=== PATIENT | male | born 1985 | race Caucasian/White ===

== ENCOUNTER 2019-12-09 19:05 | Emergency (ER) | payer OTHER, BC ==
[2019-12-09] MEDS ORDERED: IBUPROFEN 800 MG TABLET PO ONE (20:17)
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
[2019-12-09 21:52] VITALS: BP 164/82
== END 2019-12-09 22:00 | disposition home or self-care (01) ==
LOC: ER 19:05
DX: M54.2 Cervicalgia (principal); M54.6 Pain in thoracic spine; M54.5 Low back pain; M54.9 Dorsalgia, unspecified; G89.29 Other chronic pain; R51 Headache; V87.7XXA Person injured in collision between other specified motor vehicles (traffic), initial encounter
CPT/HCPCS: 72050; 72070; 72110; 99283

== ENCOUNTER 2020-10-16 17:54 | Emergency (ER) | payer BC, OTHER ==
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
[2020-10-16 20:50] LABS: ABSOLUTE BASOPHILS # (AUTO) 0.1 10^3/uL (0.0-0.2); ABSOLUTE EOSINOPHILS # (AUTO) 0.3 10^3/uL (0.0-0.6); ABSOLUTE LYMPHOCYTES (AUTO) 2.1 10^3/uL (0.5-4.7); ABSOLUTE MONOCYTES (AUTO) 0.9 10^3/uL (0.1-1.4); ABSOLUTE NEUT (AUTO) 10.5 10^3/uL (1.7-8.2); BASOPHILS % (AUTO) 0.7 % (0-2); EOSINOPHILS % (AUTO) 2.4 % (0-6); HEMATOCRIT 35.7 % (37.9-51.0); HEMOGLOBIN 11.8 g/dL (13.5-17.0); LYMPHOCYTES % (AUTO) 14.9 % (13-45); MEAN CORPUSCULAR HEMOGLOBIN 22.7 pg (27.0-33.4); MEAN CORPUSCULAR VOLUME 69 fl (80-97); MONOCYTES % (AUTO) 6.1 % (3-13); PLATELET COUNT 384 10^3/uL (150-450); RED BLOOD COUNT 5.21 10^6/uL (4.35-5.55); RED CELL DISTRIBUTION WIDTH 18.5 % (11.5-14.0); SEGMENTED NEUTROPHILS % (AUTO) 75.9 % (42-78); TOTAL CELLS COUNTED % (AUTO) 100 %; WHITE BLOOD COUNT 13.9 10^3/uL (4.0-10.5)
[2020-10-16 21:06] LABS: ALBUMIN 4.5 g/dL (3.5-5.0); ALKALINE PHOSPHATASE 92 U/L (38-126); ANION GAP 13 (5-19); ASPARTATE AMINO TRANSFERASE 34 U/L (17-59); BILIRUBIN,DIRECT 0.6 mg/dL (0.0-0.4); BLOOD UREA NITROGEN 11 mg/dL (7-20); C-REACTIVE PROTEIN 78.1 mg/L (<10.0); CALCIUM 9.9 mg/dL (8.4-10.2); CARBON DIOXIDE 28 mmol/L (22-30); CHLORIDE 98 mmol/L (98-107); GLUCOSE 85 mg/dL (75-110); POTASSIUM 4.7 mmol/L (3.6-5.0); TOTAL PROTEIN 10.2 g/dL (6.3-8.2)
[2020-10-16] MEDS ORDERED: HYDROMORPHONE HCL INJ/PF 2 MG/ML AMPULE IV ONE (22:35)
[2020-10-16] MEDS: CLINDAMYCIN 600 MG/D5W RTU 600 MG/50 ML RTUPB IV SCH (23:03)
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
--- NOTE | 2020-10-17 01:16 | ER Document Report ---
ED General <ENOCH OLIVERA ANTONIO - Last Filed: 10/17/20 04:41> - General Mode of Arrival: Ambulatory Information source: Patient TRAVEL OUTSIDE OF THE [place] IN LAST 30 DAYS: No <YONY BIRCH - Last Filed: 10/17/20 15:47> - General Chief Complaint: wound with drainage Stated Complaint: POST SURGICAL PAIN Time Seen by Provider: 10/16/20 19:11 Notes: This 35-year-old man presents into the emergency department with a history of back surgery for scoliosis approximately 5 years ago in [place]. He has had a revision procedure done 3 years ago in which part of one of the Womack rods was removed. Since that time he has had some episodes of back pain and in February of this year was seen at an urgent care because of a area of drainage from the site where the chely was removed. He was told that it was a staph infection he was given antibiotics and had done well until recently when he has developed increasing pain in the area and a small open lesion which has been draining. He has been afebrile, no nausea or vomiting however, his notes that he was sweating profusely last night. She did not measure a temperature. He is complaining of pain and is presently not taking a pain medication. Denies allergies to any medications. He was seen down at [facility] neurosurgical clinic and had some outpatient evaluation started, however, there has been no follow-up. (YONY BIRCH) - Related Data Allergies/Adverse Reactions: No Known Allergies Allergy (Unverified 12/09/19 20:24) Past Medical History - Social History Smoking Status: Never Smoker Chew tobacco use (# tins/day): Yes - occasionnal cigar Frequency of alcohol use: None Drug Abuse: None Family History: Reviewed & Not Pertinent Musculoskeletal Medical History: Reports Hx Musculoskeletal Deformity, Reports Hx Musculoskeletal Trauma Past Surgical History: Reports: Hx Adenoidectomy, Hx Myringotomy, Hx Orthopedic Surgery - Womack rods surgeries x3, Hx Tonsillectomy - Immunizations Immunizations up to date: Yes <YONY BIRCH - Last Filed: 10/17/20 15:47> Review of Systems <YONY BIRCH - Last Filed: 10/17/20 15:47> - Review of Systems Notes: Constitutional: Negative for fever. HENT: Negative for sore throat. Eyes: Negative for visual changes. Cardiovascular: Negative for chest pain. Respiratory: Negative for shortness of breath. Gastrointestinal: Negative for abdominal pain, vomiting or diarrhea. Genitourinary: Negative for dysuria. Musculoskeletal: + Back pain Skin: + Draining lesion on the back Neurological: Negative for headaches, weakness or numbness. 10 point ROS negative except as marked above and in HPI. (YONY BIRCH) Physical Exam <YONY BIRCH - Last Filed: 10/17/20 15:47> - Vital signs Vitals: Temp Pulse Resp BP Pulse Ox 98.8 F 107 H 20 190/106 H 99 10/16/20 18:02 10/16/20 18:02 10/16/20 18:02 10/16/20 18:02 10/16/20 18:02 - Notes Notes: PHYSICAL EXAMINATION: Physical Exam: General: Well-nourished well-developed 35-year-old man in no acute distress HEENT: NC/AT, pupils equal round and reactive to light, MM moist,nares clear, oropharynx clear, airway patent Neck: supple, no adenopathy, no masses. Good range of motion Lungs: clear, no wheezing, no rales no rhonchi CVS: Regular rate and rhythm no murmur gallop or rub Abdomen: Soft, active, nontender, no masses, no hepatosplenomegaly Back: Healed surgical scar a central raised area at the lower thoracic region with a yellowish draining material. Ext: No edema, clubbing or cyanosis. Neuro: Alert and responsive, moving all 4 extremities on command, cranial nerves intact, no focal findings Skin: Intact no open lesions, no rash PSYCH: Normal mood, normal affect. (YONY BIRCH) Course - Laboratory Results Result Diagrams: 10/16/20 20:25 10/16/20 20:25 <ENOCH OLIVERA IV - Last Filed: 10/17/20 04:41> - Laboratory Results Result Diagrams: 10/16/20 20:25 10/16/20 20:25 Critical Laboratory Results Reviewed: No Critical Results - Radiology Results Critical Radiology Results Reviewed: No Critical Results <YONY BIRCH - Last Filed: 10/17/20 15:47> - Re-evaluation Re-evalutation: 10/17/20 04:41 Repeat lactic acid is 0.9. 10/17/20 04:45 Repeat lactic acid discussed with patient. Patient states that his pain is starting to return. This MD ordered an additional milligram of Dilaudid IV to be given now and patient will be discharged home. 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 (ENOCH OLIVERA IV) 10/17/20 01:13 A culture of the wound was obtained, patient was given clindamycin 600 mg IV, hydromorphone 1 mg IV for pain and CT of the thoracic and lumbar spine was performed. CT is remarkable for thoracic spine posterior stabilization with Womack chely extending from T3-T10 the right chely is displaced into the parasp inous muscle caudally there is extensive fusion posteriorly from T12-L5 there is a focal collection of fluid in the soft tissue posterior to the T12 in through L1 there is no enhancing rim and may represent edema or postoperative fluid. There is mild spinal stenosis at L4 and L5. I discussed these findings with the patient explaining to her that follow-up with the neurosurgeon would be imperative. A copy of the images on disc as well as a copy of the interpretation will be provided at discharge. I have also noted to her that that wound culture will be followed up and if an organism grows that is resistant to clindamycin she will be contacted. (YONY BIRCH) - Vital Signs Vital signs: Temp Pulse Resp BP Pulse Ox 98.4 F 107 H 18 108/68 94 10/17/20 06:01 10/16/20 18:02 10/17/20 06:01 10/17/20 06:01 10/17/20 06:01 - Laboratory Results Laboratory Results Interpreted: 10/16/20 10/16/20 10/16/20 20:25 20:25 20:25 WBC 13.9 H Hgb 11.8 L Hct 35.7 L MCV 69 L MCH 22.7 L RDW 18.5 H Absolute Neuts (auto) 10.5 H ESR Lactic Acid 2.8 H Direct Bilirubin 0.6 H C-Reactive Protein 78.1 H Total Protein 10.2 H 10/16/20 21:25 WBC Hgb Hct MCV MCH RDW Absolute Neuts (auto) ESR 104 H Lactic Acid Direct Bilirubin C-Reactive Protein Total Protein - Radiology Results Radiology Results Interpreted: 10/17/20 01:[address] 10/16/20 19:23 IMPRESSION: 1. Thoracic spine: There is posterior stabilization with Womack rods extending from T3 through T10. The right chely is displaced into the paraspinal muscles caudally. 2. Extensive posterior fusion of the spine from T2 through L5. 3. Focal fluid collection in the soft tissues posteriorly from T12 through L2. This does not appear to have an enhancing rim and may just represent edema or postoperative fluid. 4. Possible mild spinal stenosis at L4 and L5. Probable right foraminal narrowing at L4-5. Thoracic Spine CT 10/16/20 19:23 IMPRESSION: 1. Thoracic spine: There is posterior stabilization with Womack rods extending from T3 through T10. The right chely is displaced into the paraspinal muscles caudally. 2. Extensive posterior fusion of the spine from T2 through L5. 3. Focal fluid collection in the soft tissues posteriorly from T12 through L2. This does not appear to have an enhancing rim and may just represent edema or postoperative fluid. 4. Possible mild spinal stenosis at L4 and L5. Probable right foraminal narrowing at L4-5. (YONY BIRCH) Discharge <ENOCH OLIVERA IV - Last Filed: 10/17/20 04:41> <YONY BIRCH - Last Filed: 10/17/20 15:47> - Discharge Clinical Impression: History of back surgery Scoliosis Qualifiers: Scoliosis type: unspecified scoliosis Spinal region: thoracic Qualified Code(s): M41.9 - Scoliosis, unspecified Back pain Qualifiers: Back pain location: thoracic back pain Chronicity: acute Back pain laterality: midline Qualified Code(s): M54.6 - Pain in thoracic spine Condition: Good Disposition: HOME, SELF-CARE Instructions: Chronic Back Pain ([facility]) Additional Instructions: You were seen in the emergency department tonight with issues related to your previous back surgery. Increasing pain and a draining area on the surgical scar which may represent infection. A culture of the drainage was obtained, you were given IV antibiotics and a prescription for a 14-day course of antibiotics is also given. You are being dispense medications for pain [place] 1 tablet every 6- 8 hours as needed for pain. You have been encouraged to follow-up with the neurosurgical consult in [place]. A copy of the disc with the images as well as the report of the images are being provided to take with you to an appointment. Please take the medications as prescribed increase your water intake while taking these medications. If your symptoms are worsening or if you have other concerns you may return to the emergency department for further evaluation and treatment. HOME CARE INSTRUCTIONS & INFORMATION: Thank you for choosing us for your medical needs. We hope you're satisfied with the care you received. After you leave, you must properly care for your problem and, at the same time, observe its progress. Any condition can change. Some illnesses can change rapidly over hours or days. If your condition worsens, return to the Emergency Department or see your physician promptly. ABOUT YOUR X-RAYS AND EKG'S: If you had an EKG or X-rays taken, they have been read by the Emergency Physician. The X-rays and EKG's will also be read by a Radiologist or Asphalt Paving Machine Operator within 24 hours. If discrepancies are noted, you will be notified by telephone. Please be certain the ED has a correct telephone number & address where you can be reached. Also, realize that some fractures or abnormalities do not show up on initial X-rays. If your symptoms continue, see your physician. ABOUT YOUR LABORATORY TEST: If you had laboratory tests, the results have been reviewed by the Emergency Physician. Some test results (for example cultures) may not be available for several days. You will be contacted if any test result shows you need additional treatment. Please be certain the ED has a correct telephone number and address where you can be reached. ABOUT YOUR MEDICATIONS: You will receive instructions on how to take your medicine on the prescription label you receive. Additional information may be provided by the Pharmacy. If you have questions afterwards, call the ED for clarification or further instructions. Some prescribed medications may cause drowsiness. Do not perform tasks such as driving a car or operating machinery without consulting your Pharmacist. If you feel you need a refill of pain medication, your condition will need re-evaluation. Please do not call for a refill of any medication. ABOUT YOUR SIGNATURE: Signature of this document acknowledges to followin. Understanding that you received emergency treatment and that you may be released before al medical problems are known or treated. Please be certain the ED has a correct phone number & address where you can be reached. 2. Acknowledgement that you will arrange for follow-up care as recommended. 3. Authorization for the Emergency Physician to provide information to your follow-up Physician in order to maximize your care. AT ANY TIME, IF YOUR SYMPTOMS CHANGE SIGNIFICANTLY OR WORSEN OR YOU DEVELOP NEW SYMPTOMS, RETURN TO THE EMERGENCY DEPARTMENT IMMEDIATELY FOR RE-EVALUATION. OUR GOAL IS TO PROVIDE EXCELLENT MEDICAL CARE! WE HOPE THAT WE HAVE MET YOUR EXPECTATIONS DURING YOUR EMERGENCY DEPARTMENT VISIT AND THAT YOU FEEL YOU HAVE RECEIVED EXCELLENT CARE! Prescriptions: Clindamycin HCl 300 mg PO TID 14 Days #42 capsule Hydrocodone/Acetaminophen [[place] 5-325 mg Tablet] 1 tab PO Q6 PRN 3 Days #10 tablet PRN Reason: For Pain Forms: Return to Work
[2020-10-17] MEDS ORDERED: HYDROCODONE/ACETAMINOPHEN 5-325 MG (6 TAB/ER DISP) PO PRN (01:23)
[2020-10-17] MEDS ORDERED: NORMAL SALINE 1000 ML 1,000 ML IV ONE (01:28)
[2020-10-17] MEDS ORDERED: HYDROMORPHONE HCL INJ/PF 2 MG/ML AMPULE IV ONE (04:44)
[2020-10-17] MEDS: CLINDAMYCIN 600 MG/D5W RTU 600 MG/50 ML RTUPB IV SCH (05:02)
[2020-10-17 06:23] VITALS: BP 108/68
== END 2020-10-17 06:36 | disposition home or self-care (01) ==
LOC: ER 17:54
DX: M41.9 Scoliosis, unspecified (principal); T84.328A Displacement of other bone devices, implants and grafts, initial encounter; Y83.8 Other surgical procedures as the cause of abnormal reaction of the patient, or of later complication, without mention of misadventure at the time of the procedure; M54.6 Pain in thoracic spine; Z98.1 Arthrodesis status; Z98.890 Other specified postprocedural states; Z72.0 Tobacco use
CPT/HCPCS: 96376; 99285; 96361; 96375; 96365; 96366; 36415; 87040; 87070; 87205; 83605; 85025; 85652; 87075; 86140; 87077; 80053; 87186; 72129; 72132; J1170 ×2; J7030